=== PATIENT | male | born 1985 | race Caucasian/White ===

== ENCOUNTER 2017-11-21 14:46 | Emergency (ER) | payer BC ==
[2017-11-21] MEDS ORDERED: LIDOCAINE 1% W/EPI 1:100,000 MDV 50 ML VIAL ONE (15:33)
[2017-11-21] MEDS ORDERED: LIDOCAINE 1% 20 ML MDV ONE (15:43)
[2017-11-21] MEDS ORDERED: TETANUS & DIPHTHERIA TOX,ADULT 0.5 ML VIAL ONE (16:02)
--- NOTE | 2017-11-21 16:19 | ER ---
Nurse's Notes [facility] Name: John Tirado Age: 32 yrs Sex: Male : 1985 Arrival Date: 11/21/2017 Time: 14:50 Bed 28 Private MD: Diagnosis: Laceration without foreign body of lip;Contusion of nose Presentation: 11/21 15:19 Presenting complaint: Patient states: "i went to pee and fell forward and hit the door tw2 right on my lip and i feel like my bottom teeth are pushed back". Transition of care: patient was not received from another setting of care. Complicating Factors: There are no complicating factors for this patient. Onset of symptoms was November 21, 2017. Initial Sepsis Screen: Does the patient meet any 2 criteria? No. Patient's initial sepsis screen is negative. Does the patient have a suspected source of infection? No. Patient's initial sepsis screen is negative. Care prior to arrival: None. 15:19 Method Of Arrival: Ambulatory tw2 15:19 Acuity: RICHARDSON 4 tw2 Historical: - Allergies: 15:23 PENICILLINS; tw2 - Home Meds: 15:23 Benalista, week injections [Active]; tramadol 50 mg oral tab [Active]; tw2 - PMHx: 15:23 Lupus; Sjogrens; tw2 - PSHx: 15:23 None; tw2 - Immunization history:: Adult Immunizations up to date, Last tetanus immunization: unknown. - Social history:: Smoking status: Patient uses tobacco products, chewing tobacco. Screenin:30 Abuse screen: Denies threats or abuse. Nutritional screening: No deficits noted. tl3 Tuberculosis screening: No symptoms or risk factors identified. Fall Risk None identified. Assessment: 15:30 General: Appears in no apparent distress. uncomfortable, slender, well groomed, well tl3 developed, Behavior is calm, cooperative, appropriate for age. Pain: Complains of pain in nose and mouth Pain currently is 6 out of 10 on a pain scale. at worst was 10 out of 10 on a pain scale. Neuro: No deficits noted. Level of Consciousness is awake, alert, obeys commands, Oriented to person, place, time, situation, Appropriate for age. Cardiovascular: Heart tones S1 S2 present. Respiratory: Airway is patent Trachea midline Respiratory effort is even, unlabored, Respiratory pattern is regular, symmetrical. GI: No signs and/or symptoms were reported involving the gastrointestinal system. : No signs and/or symptoms were reported regarding the genitourinary system. EENT: No signs and/or symptoms were reported regarding the EENT system. Derm: No signs and/or symptoms reported regarding the dermatologic system. Musculoskeletal: No deficits noted. Injury Description: Laceration sustained to mouth is jagged, 0.5 to 2.5 cm long. 15:30 Reassessment: pt fell asleep on the toilet and fell forward hitting face on the corner tl3 of the bathroom cabinet. 16:37 Reassessment: Patient and/or family updated on plan of care and expected duration. Pain tl3 level reassessed. Patient is alert, oriented x 3, equal unlabored respirations, skin warm/dry/pink. Vital Signs: 15:21 BP 106 / 67; Pulse 74; Resp 18; Temp 97.5(TE); Pulse Ox 100% on R/A; Weight 49.9 kg tw2 (R); Height 5 ft. 11 in. (180.34 cm) (R); Pain 7/10; 16:37 BP 108 / 72; Pulse 72; Resp 16; Pulse Ox 100% on R/A; tl3 15:21 Body Mass Index 15.34 (49.90 kg, 180.34 cm) tw2 ED Course: 14:50 Patient arrived in ED. sb2 15:21 Triage completed. tw2 15:21 Arm band placed on. tw2 15:28 [facility]. jr8 15:28 Omi Martel MD is Attending Physician. jr8 15:29 Deloris Pollack, CLIFTON is Primary Nurse. tl3 15:30 Patient has correct armband on for positive identification. Bed in low position. Adult tl3 w/ patient. 15:30 No provider procedures requiring assistance completed. Patient did not have IV access tl3 during this emergency room visit. 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 Exp: tl3 03/01/2020. Lot #: [id number]. } Route: IM; Site: left deltoid; 16:39 Follow up: Response: No adverse reaction tl3 Outcome: 16:18 Discharge ordered by . rex 16:37 Discharged to home ambulatory. tl3 16:37 Condition: stable 16:37 Discharge instructions given to patient, Instructed on discharge instructions, follow up and referral plans. Demonstrated understanding of instructions, follow-up care. 16:40 Patient left the ED. tl3 Signatures: Jose Bahena PA PA jr8 Shantell Adan, RN RN tw2 Estefani Rose sb2 Deloris Pollack, RN RN tl3
--- NOTE | 2017-11-21 16:19 | EDPHYS ---
Physician Documentation [facility] Name: John Tirado Age: 32 yrs Sex: Male : 1985 Arrival Date: 11/21/2017 Time: 14:50 Bed 28 Private MD: ED Physician Omi Martel HPI: 11/21 16:14 This 32 yrs old Male presents to ER via Ambulatory with complaints of jr8 Laceration To Lip. 16:14 The patient has a laceration related to: falling occurred at home. The laceration(s) jr8 is(are) located on the nose and mouth. Onset: The symptoms/episode began/occurred acutely, last night. Associated signs and symptoms: The patient has no apparent associated signs or symptoms. The patient has not experienced similar symptoms in the past. The patient has not recently seen a physician. Patient stated that he fell asleep on the toilet. Stated that it caused him to fall forward hitting nose and lip . Historical: - Allergies: 15:23 PENICILLINS; tw2 - Home Meds: 15:23 Benalista, week injections [Active]; tramadol 50 mg oral tab [Active]; tw2 - PMHx: 15:23 Lupus; Sjogrens; tw2 - PSHx: 15:23 None; tw2 - Immunization history:: Adult Immunizations up to date, Last tetanus immunization: unknown. - Social history:: Smoking status: Patient uses tobacco products, chewing tobacco. ROS: 16:14 Eyes: Negative for injury, pain, redness, and discharge, Neck: Negative for injury, jr8 pain, and swelling, Cardiovascular: Negative for chest pain, palpitations, and edema, Respiratory: Negative for shortness of breath, cough, wheezing, and pleuritic chest pain, Abdomen/GI: Negative for abdominal pain, nausea, vomiting, diarrhea, and constipation, Back: Negative for injury and pain, MS/Extremity: Negative for injury and deformity, Skin: Negative for injury, rash, and discoloration, Neuro: Negative for headache, weakness, numbness, tingling, and seizure. 16:14 ENT: Positive for injury or acute deformity, laceration, nose bleed. Exam: 16:14 Head/Face: Normocephalic, atraumatic. Eyes: Pupils equal round and reactive to light, jr8 extra-ocular motions intact. Lids and lashes normal. Conjunctiva and sclera are non-icteric and not injected. Cornea within normal limits. Periorbital areas with no swelling, redness, or edema. Neck: Trachea midline, no thyromegaly or masses palpated, and no cervical lymphadenopathy. Supple, full range of motion without nuchal rigidity, or vertebral point tenderness. No Meningismus. Cardiovascular: Regular rate and rhythm with a normal S1 and S2. No gallops, murmurs, or rubs. Normal PMI, no JVD. No pulse deficits. Respiratory: Lungs have equal breath sounds bilaterally, clear to auscultation and percussion. No rales, rhonchi or wheezes noted. No increased work of breathing, no retractions or nasal flaring. Abdomen/GI: Soft, non-tender, with normal bowel sounds. No distension or tympany. No guarding or rebound. No evidence of tenderness throughout. Back: No spinal tenderness. No costovertebral tenderness. Full range of motion. Skin: Warm, dry with normal turgor. Normal color with no rashes, no lesions, and no evidence of cellulitis. MS/ Extremity: Pulses equal, no cyanosis. Neurovascular intact. Full, normal range of motion. Neuro: Awake and alert, GCS 15, oriented to person, place, time, and situation. Cranial nerves II-XII grossly intact. Motor strength 5/5 in all extremities. Sensory grossly intact. Cerebellar exam normal. Normal gait. 16:14 ENT: Exam is negative for earache, ear discharge, TM abnormalities, Nose: External nose: contusion is noted, bridge of nose and apex of the nose, Nasal septum: is midline, no septal hematoma appreciated, Nasal mucosa: Dried blood. moist, Turbinates: are normal, Mouth: Lips: moist, lacerated, approximately 2.5 cm(s), lower lip, Oral mucosa: pink and intact, moist, Gums: pink, Tongue: is moist, Posterior pharynx: is normal, airway is patent, no erythema, no exudate, no peritonsilar mass, no pooling of secretions, no swelling, normal tonsil apperance, normal sized tonsils, normal uvula appearance, normal uvula size, Dental exam: normal, no avulsion, no injury, no pain, no trismus. Vital Signs: 15:21 BP 106 / 67; Pulse 74; Resp 18; Temp 97.5(TE); Pulse Ox 100% on R/A; Weight 49.9 kg tw2 (R); Height 5 ft. 11 in. (180.34 cm) (R); Pain 7/10; 16:37 BP 108 / 72; Pulse 72; Resp 16; Pulse Ox 100% on R/A; tl3 15:21 Body Mass Index 15.34 (49.90 kg, 180.34 cm) tw2 Laceration: 16:04 Wound Repair of 2.5cm ( 1.0in ) subcutaneous laceration to mouth. Irregularly shaped.. jr8 Minimal bleeding noted.. Distal neuro/vascular/tendon intact. Anesthesia: Local anesthetic administered with 3 mls of 1% lidocaine. Wound prep: Extensive cleansing with hibiclenz by me, Wound irrigation with saline, Wound explored extensively. Skin closed with 4 5-0 fast absorbing using simple sutures and sterile technique. Patient tolerated well. MDM: 15:28 Patient medically screened. jr8 16:14 Data reviewed: vital signs, nurses notes, and as a result, I will discharge patient. jr8 Data interpreted: Pulse oximetry: on room air is 100 %. Interpretation: normal. Counseling: I had a detailed discussion with the patient and/or guardian regarding: the historical points, exam findings, and any diagnostic results supporting the discharge/admit diagnosis, the need for outpatient follow up, a family practitioner, to return to the emergency department if symptoms worsen or persist or if there are any questions or concerns that arise at home. ED course: Discussed with patient that they are fast absorbing sutures. Will not need to be taken out. Watch for s/s of infection. To come back if s/s for infection occur . 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 Exp: tl3 03/01/2020. Lot #: [id number]. } Route: IM; Site: left deltoid; 16:39 Follow up: Response: No adverse reaction tl3 Disposition: 17:18 Co-signature as Attending Physician, Omi Martel MD. rn Disposition: 11/21/17 16:18 Discharged to Home. Impression: Laceration without foreign body of lip, Contusion of nose. - Condition is Stable. - Discharge Instructions: Mouth Laceration. - Medication Reconciliation Form, Thank You Letter, Antibiotic Education, Prescription Opioid Use form. - Follow up: Private Physician; When: 1 week; Reason: Wound Recheck, Recheck today's complaints, Continuance of care, Re-evaluation by your physician. - Problem is new. - Symptoms have improved. Signatures: Omi Martel MD MD rn Roszak, Josh, PA PA jr8 Shantell Adan RN RN tw2 Deloris Pollack RN RN tl3
== END 2017-11-21 16:40 | disposition home or self-care (01) ==
LOC: ER 14:46
PROC: 0CQ0XZZ Repair Upper Lip, External Approach (ICD-10-PCS; principal; 2017-11-21)
DX: S01.511A Laceration without foreign body of lip, initial encounter (principal); W18.12XA Fall from or off toilet with subsequent striking against object, initial encounter; Y93.9 Activity, unspecified; Y92.002 Bathroom of unspecified non-institutional (private) residence as the place of occurrence of the external cause; Z23 Encounter for immunization; Z88.0 Allergy status to penicillin
CPT/HCPCS: 90714; 99283

== ENCOUNTER 2023-08-27 14:41 | Emergency (ER) | payer BC, OTHER, SELFPAY ==
[2023-08-27] MEDS ORDERED: TDAP (DIPHTH,PERTUSS(ACELL),TET VAC) 0.5 ML VIAL IMVAC ONE (14:59)
[2023-08-27 15:05] LABS: Absolute Basophils 0.1 K/uL (0-0.5); Absolute Lymphocytes (CBC) 0.5 K/uL (0.7-4.9); Absolute Monocytes 1.1 K/uL (0.1-1.3); Absolute Neutrophil 17.7 K/uL (1.8-8.0); Basophils % 0.4 % (0-1.3); Eosinophils % 0.1 % (0-4.4); Hematocrit 44.2 % (39.6-49.0); Lymphocytes % 2.7 % (15.3-44.8); MCH 29.1 pg (27.0-35.0); MCV 85.6 fL (80-100); MPV 8.2 fL (7.6-11.3); Monocytes % 5.8 % (3.3-12.3); Nucleated RBC Absolute Count 0.1 (0-0); Nucleated Red Blood Cells % 0.2 % (0-0); Platelets 269 thou/uL (152-406); RBC Red Blood Cell Count 5.17 M/uL (4.33-5.43); Red Cell Distribution Width 13.8 % (12.1-15.2)
[2023-08-27] MEDS ORDERED: ONDANSETRON 4 MG/2 ML VIAL ONE ×2 (15:11→19:51)
[2023-08-27 15:27] LABS: Albumin 4.2 g/dL (3.4-5.0); Albumin/Globulin Ratio 1.4 (1.1-1.8); Anion Gap 11.1 mEq/L (5.0-15.0); Bilirubin Total 0.3 mg/dL (0.2-1.0); Potassium 4.1 mEq/L (3.5-5.1); Protein, Total 7.2 g/dL (6.4-8.2)
[2023-08-27] MEDS ORDERED: LORazepam 2 MG/ML VIAL ONE (15:36)
[2023-08-27 15:41] LABS: Blood Morphology Comment NOT SEEN (NOT SEEN); Platelet Estimate ADEQ; White Blood Cell Scan OK (OK)
[2023-08-27] MEDS ORDERED: carBAMazepine 200 MG TAB ONE ×2 (15:43→19:51)
[2023-08-27] MEDS ORDERED: NA CHLORIDE 0.9% 1,000 ML ONE (15:43)
--- NOTE | 2023-08-27 15:52 | RAD REPORT ---
EXAM DESCRIPTION: CT - CTHCSPWOC - 08/27/2023 3:25 pm CLINICAL HISTORY: Trauma, head and neck injury. TRAUMA COMPARISON: No comparisons TECHNIQUE: Axial 5 mm thick images of the head were obtained. Axial 2 mm thick images of the cervical spine were obtained with sagittal and coronal reconstruction images generated and reviewed. All CT scans are performed using dose optimization technique as appropriate and may include automated exposure control or mA/KV adjustment according to patient size. FINDINGS: CT HEAD WITHOUT CONTRAST: No acute hemorrhage, hydrocephalus or extra-axial collection is identified.No areas of brain edema or midline shift. Bilateral carotid calcifications. The paranasal sinuses and mastoids are clear.The calvarium is intact. CT CERVICAL SPINE WITHOUT CONTRAST: No fracture or subluxation.No prevertebral soft tissues swelling is identified. Mild cervical spondyl osis including a posterior disc osteophyte complex uncovertebral joint hypertrophy at the C5-6 level. No significant neural foraminal narrowing. No central spinal stenosis appreciated. IMPRESSION: No acute intracranial or cervical spine findings.
[2023-08-27] MEDS ORDERED: LIDOCAINE 2% MPF 5 ML VIAL ONE (16:59)
[2023-08-27] MEDS ORDERED: ONDANSETRON 4 MG (ODT) TAB ONE (18:38)
--- NOTE | 2023-08-27 19:19 | RAD REPORT ---
EXAM DESCRIPTION: RAD - Elbow Right 3 View - 08/27/2023 7:10 pm CLINICAL HISTORY: PAIN COMPARISON: No comparisons FINDINGS/IMPRESSION: No acute fracture. No malalignment. No significant focal degenerative changes.
--- NOTE | 2023-08-28 00:43 | ER ---
Nurse's Notes [facility] Name: John Tirado Age: 38 yrs Sex: Male : 1985 Arrival Date: 08/27/2023 Time: 14:41 Bed 20 Private MD: Diagnosis: Other seizures;Facial laceration Presentation: 08/27 14:49 Chief complaint: Found down by neighbor after probable seizure, vomit x 3 [employer] LO[employer] PROC[employer]. hb Laceration noted to right forehead, bruising noted to bilateral elbows. Hx of seizures and lupus, takes Trileptal. Coronavirus screen: At this time, the client does not indicate any symptoms associated with coronavirus-19. Ebola Screen: No symptoms or risks identified at this time. Initial Sepsis Screen: Does the patient meet any 2 criteria? No. Patient's initial sepsis screen is negative. Does the patient have a suspected source of infection? No. Patient's initial sepsis screen is negative. Risk Assessment: Do you want to hurt yourself or someone else? Patient reports no desire to harm self or others. Onset of symptoms was August 27, 2023. 14:49 Method Of Arrival: Wheelchair hb 14:49 Acuity: RICHARDSON 2 hb Triage Assessment: 15:18 General: Appears distressed, Behavior is calm, cooperative, appropriate for age. cp4 Historical: - Allergies: 14:51 PENICILLINS; hb - PMHx: 14:51 Lupus; Sjogrens; hb Historical Immunization: - Administered Vaccines 19:58 Ondansetron IVP 4 mg nw1 19:58 carBAMazepine PO 200 mg nw1 19:05 Lidocaine Infiltration (2 %) 5 mg cp4 19:05 carBAMazepine PO 200 mg cp4 15:39 Ativan IVP 2 mg hb 15:13 Ondansetron IVP 4 mg cp4 15:03 Tetanus-Diphtheria Toxoid IM Adult 0.5 ml cp4 Bobbin Drier: [employer]; Exp: MonDec 20 2024; Lot #: [id number]; Series: 1 of 1; Patient Consent: Obtained; Date/Time: ; Source Name: John Tirado; Source Relationship: Self; Address Information: [address], [place] [address]; ; Education: Provided; VIS Presented Date: ; VIS Publication: Tetanus/Diphtheria (Td) Vaccine VIS 11/08/2016 (historic) - Immunization history:: Client reports receiving the 1st dose of the Covid vaccine, Last tetanus immunization: > 10 years ago. - Social history:: Smoking status: Reported history of juuling and/or vaping. - Family history:: not pertinent, pertinent for. Screenin:14 [facility] ED Fall Risk Assessment (Adult) History of falling in the last 3 months, cp4 including since admission Yes- single mechanical fall (1 pt) Confusion or Disorientation No (0 pts) Intoxicated or Sedated No (0 pts) Impaired Gait No (0 pts) Mobility Assist Device Used No (0 pt) Altered Elimination No (0 pt) Score/Fall Risk Level 0 - 2 = Low Risk Oriented to surroundings, Maintained a safe environment, Educated pt \\T\\ family on fall prevention, incl call for assistance when getting out of bed, Assessed \\T\\ reinforced patient's understanding of fall precautions, Provided non-skid footwear, Hourly rounding (assess needs \\T\\ fall precautionary measures) done. Abuse screen: Denies threats or abuse. Nutritional screening: No deficits noted. Tuberculosis screening: No symptoms or risk factors identified. Assessment: 15:14 General: Appears distressed, Behavior is calm, cooperative, appropriate for age. Pain: cp4 Complains of pain in headache, bilateral elbows. Neuro: No deficits noted. 19:05 Reassessment: Report received from CLIFTON Morrell. Introductions made and patient noted nw1 without IV, blood on face and right hand. Pt noted postictal but redirectable. Father at bedside. Notified Dr. Martel that patient is without IV and vomiting. New orders made. Will return to place IV and administer medication. 19:32 Reassessment: Patient cleaned up and placed into gown. Most blood able to be removed. nw1 Linen changed and patient given warm blanket to patient. Dr. Martel at bedside to discuss POC. Patient in bed. IV placed and will return to administer medication. 19:32 General: Appears uncomfortable, Behavior is cooperative, quiet, restless. nw1 Cardiovascular:. 19:32 Pain: Complains of pain in "everywhere". Neuro: Seizure activity prior to start of nw1 shift. Cardiovascular: Heart tones present Capillary refill < 3 seconds Pulses are all present. Rhythm is sinus rhythm. Respiratory: Airway is patent Trachea midline. GI: Reports intolerance of fluids, intolerance of food, nausea, vomiting. : No deficits noted. Derm: Skin has skin tears on laceration to right frontal forehead. Skin is dry, Skin is pale, Skin temperature is warm. Musculoskeletal: Reports. 19:58 Reassessment: Medication administered and VS obtained. Father remains at bedside, Call nw1 light at bedside, Will continue to monitor. 21:30 Reassessment: Pt noted vomiting water. nw1 22:50 Reassessment: Pt given water per Dr. Martel to see if tolerating. Pt noted lethargic at nw1 this time. Will return to assess if tolerated. 23:59 Reassessment: Pt noted sleeping in bed with both eyes closed. No vomiting noted. Dr. bibiana Martel notified. Vital Signs: 14:49 BP 109 / 87; Pulse 96; Resp 18; Temp 98.3; Pulse Ox 99% on R/A; Weight 54.43 kg; Height hb 5 ft. 10 in. ; Pain 8/10; 16:00 BP 116 / 80; Pulse 99; Resp 18; Pulse Ox 97% ; cp4 17:00 BP 127 / 85; Pulse 110; Resp 18; Pulse Ox 97% ; cp4 18:00 BP 124 / 78; Pulse 93; Resp 18; Pulse Ox 97% ; cp4 19:57 BP 121 / 78; Pulse 85; Resp 17; Pulse Ox 98% ; nw1 21:00 BP 113 / 80; Pulse 98; Pulse Ox 98% ; nw1 14:49 Body Mass Index 17.22 (54.43 kg, 177.8 cm) hb 14:49 Pain Scale: Adult hb Tigist Coma Score: 15:18 Eye Response: spontaneous(4). Motor Response: obeys commands(6). Verbal Response: cp4 oriented(5). Total: 15. 19:32 Eye Response: spontaneous(4). Motor Response: obeys commands(6). Verbal Response: nw1 confused(4). Total: 14. 21:00 Eye Response: spontaneous(4). Motor Response: obeys commands(6). Verbal Response: nw1 confused(4). Total: 14. ED Course: 14:42 Patient arrived in ED. mr 14:44 Hawk Cole MD is Attending Physician. rt 14:51 Porsche Esparza is Primary Nurse. cp4 14:51 Triage completed. hb 14:52 Arm band placed on. hb 15:00 CMP Sent. cp4 15:00 CBC with Diff Sent. cp4 15:14 Bed in low position. Call light in reach. Side rails up X2. cp4 15:14 Inserted saline lock: 20 gauge in right antecubital area, using aseptic technique. cp4 Blood collected. 15:27 CT Head C Spine In Process Unspecified. EDMS 16:32 intact, bleeding controlled, No redness/swelling at site. Pressure dressing applied. cp4 19:12 Elbow Left 3 View XRAY In Process Unspecified. EDMS 19:12 Elbow Right 3 View XRAY In Process Unspecified. EDMS 19:32 Patient has correct armband on for positive identification. Placed in gown. Bed in low nw1 position. Call light in reach. Side rails up X2. Adult w/ patient. Seizure precautions initiated. Provided Education on: POC. Client placed on continuous cardiac and pulse oximetry monitoring. NIBP monitoring applied. color television console monitor on. Pulse ox on. NIBP on. Door closed. Noise minimized. Lights dimmed. Warm blanket given. self. 19:32 Inserted saline lock: 20 gauge in right forearm, using aseptic technique. nw1 19:32 No provider procedures requiring assistance completed. nw1 21:17 Vangie Baker, RN is Primary Nurse. nw1 08/28 01:22 IV discontinued, intact, bleeding controlled, No redness/swelling at site. Pressure nw1 dressing applied. Administered Medications: 08/27 15:03 Drug: Tetanus-Diphtheria Toxoid IM Adult 0.5 ml IM once; Provide Vaccine Information cp4 Statement (VIS). {Bobbin Drier: [employer]; Exp: MonDec 20 2024; Lot #: [id number]; Series: 1 of 1; Patient Consent: Obtained; Date/Time: ; Source Name: John Conklin Candida; Source Relationship: Self; Address Information: [address] [place] [address]; ; Education: Provided; VIS Presented Date: ; VIS Publication: Tetanus/Diphtheria (Td) Vaccine VIS 11/08/2016 (historic)} Route: IM; Site: right deltoid; 15:13 Drug: Ondansetron IVP 4 mg IVP once; over 2 minutes Route: IVP; Site: right antecubital;cp4 15:39 Drug: Ativan IVP 2 mg IVP once Route: IVP; Site: right antecubital; hb 19:05 Drug: Lidocaine Infiltration (2 %) 5 mg Infiltration once Route: Infiltration; cp4 19:05 Drug: carBAMazepine PO 200 mg PO once Route: PO; cp4 19:58 Drug: Ondansetron IVP 4 mg IVP once; over 2 minutes Route: IVP; Site: right forearm; nw1 19:58 Drug: carBAMazepine PO 200 mg PO once Route: PO; nw1 Medication: 15:14 VIS not applicable for this client. cp4 Outcome: 08/28 00:43 Discharge ordered by . rn 01:22 Discharged to home with family, nw1 01:22 Condition: stable 01:22 Discharge instructions given to family, Instructed on discharge instructions, follow up and referral plans. medication usage, Demonstrated understanding of instructions, follow-up care, medications, Prescriptions given X 2, 01:23 Patient left the ED. nw1 Signatures: Dispatcher [employer] EDNC Stu Mansi, Reg Reg mr Omi Martle MD MD rn Baxter, Heather, RN RN Hawk Cole MD MD rt Potter, Christina cp4 Vangie Baker RN RN nw1 Corrections: (The following items were deleted from the chart) 08/27 23:14 19:32 Reassessment: Patient cleaned up and placed into gown. Most blood able to be nw1 removed. Linen changed and patient given warm blanket to patient. Dr. Martel at bedside to discuss POC. Patient in bed. IV placed and will return to administer medication. nw1
--- NOTE | 2023-08-28 00:43 | EDPHYS ---
Physician Documentation [facility] Name: John Tirado Age: 38 yrs Sex: Male : 1985 Arrival Date: 08/27/2023 Time: 14:41 Bed 20 Private MD: ED Physician Hawk Cole HPI: 08/27 17:17 This 38 yrs old Male presents to ER via Wheelchair with complaints of Seizure, Head rt Injury-Adult. 17:17 Patient presents to the ED with seizure, head injury. The patient reportedly did not rt take his Tegretol this morning. Recurrence of seizure. Unclear how long it lasted for. Patient did hit his head, sustaining a laceration to his forehead. Also reports pain, bruising to the elbows. Denies other acute complaints at this time, symptoms are moderate in severity, no other aggravating alleviating factors.. Historical: - Allergies: 14:51 PENICILLINS; hb - PMHx: 14:51 Lupus; Sjogrens; hb - Immunization history:: Client reports receiving the 1st dose of the Covid vaccine, Last tetanus immunization: > 10 years ago. - Social history:: Smoking status: Reported history of juuling and/or vaping. - Family history:: not pertinent, pertinent for. ROS: 17:17 Constitutional: Negative for fever, chills, and weight loss, Cardiovascular: Negative rt for chest pain, palpitations, and edema, Respiratory: Negative for shortness of breath, cough, wheezing, and pleuritic chest pain, Abdomen/GI: Negative for abdominal pain, nausea, vomiting, diarrhea, and constipation, 17:17 MS/extremity: Positive for contusion, pain, 17:17 Skin: Positive for laceration(s), Negative for abrasions, 17:17 Neuro: Positive for headache, seizure activity, Exam: 17:17 Constitutional: This is a well developed, well nourished patient who is awake, alert, rt and in no acute distress. Chest/axilla: Normal chest wall appearance and motion. Nontender with no deformity. No lesions are appreciated. Cardiovascular: Regular rate and rhythm with a normal S1 and S2. No gallops, murmurs, or rubs. Normal PMI, no JVD. No pulse deficits. Respiratory: Lungs have equal breath sounds bilaterally, clear to auscultation and percussion. No rales, rhonchi or wheezes noted. No increased work of breathing, no retractions or nasal flaring. Abdomen/GI: Soft, non-tender, with normal bowel sounds. No distension or tympany. No guarding or rebound. No evidence of tenderness throughout. Neuro: Awake and alert, GCS 15, oriented to person, place, time, and situation. Cranial nerves II-XII grossly intact. Motor strength 5/5 in all extremities. Sensory grossly intact. Cerebellar exam normal. Normal gait. Psych: Awake, alert, with orientation to person, place and time. Behavior, mood, and affect are within normal limits. 17:17 Head/face: 3 cm laceration to the right forehead, no other external evidence of trauma. 17:17 Musculoskeletal/extremity: Bruises without deformity noted to the bilateral elbows, no other evidence of trauma on the extremities. Vital Signs: 14:49 BP 109 / 87; Pulse 96; Resp 18; Temp 98.3; Pulse Ox 99% on R/A; Weight 54.43 kg; Height hb 5 ft. 10 in. ; Pain 8/10; 16:00 BP 116 / 80; Pulse 99; Resp 18; Pulse Ox 97% ; cp4 17:00 BP 127 / 85; Pulse 110; Resp 18; Pulse Ox 97% ; cp4 18:00 BP 124 / 78; Pulse 93; Resp 18; Pulse Ox 97% ; cp4 19:57 BP 121 / 78; Pulse 85; Resp 17; Pulse Ox 98% ; nw1 21:00 BP 113 / 80; Pulse 98; Pulse Ox 98% ; nw1 14:49 Body Mass Index 17.22 (54.43 kg, 177.8 cm) hb 14:49 Pain Scale: Adult hb [place] Coma Score: 15:18 Eye Response: spontaneous(4). Motor Response: obeys commands(6). Verbal Response: cp4 oriented(5). Total: 15. 19:32 Eye Response: spontaneous(4). Motor Response: obeys commands(6). Verbal Response: nw1 confused(4). Total: 14. 21:00 Eye Response: spontaneous(4). Motor Response: obeys commands(6). Verbal Response: nw1 confused(4). Total: 14. Laceration: 19:00 Wound Repair of 4cm ( 1.6in ) subcutaneous laceration to face. Linear shaped.. Distal rt neuro/vascular/tendon intact. Anesthesia: Local anesthetic administered with 2 mls of 1% lidocaine. Wound prep: Moderate cleansing by nurse. Skin closed with 9 4-0 Prolene using simple sutures and sterile technique. Dressed with 4x4's. Patient tolerated well. MDM: 14:44 Patient medically screened. rt 19:00 Differential diagnosis: Seizure, nonadherence, laceration, intracranial hemorrhage, rt elbow fracture. Data reviewed: vital signs, nurses notes, radiologic studies. Consideration of Admission/Observation Escalation of care including admission/observation considered. I considered the following discharge prescriptions or medication management in the emergency department Medications were administered in the Emergency Department. See MAR. Independent interpretation of the following test(s) in the Emergency Department CT Scan: My interpretation is No intracranial hemorrhage seen on interpretation of CT scan images. Care significantly affected by the following chronic conditions: Seizure disorder. Counseling: I had a detailed discussion with the patient and/or guardian regarding the historical points, exam findings, and any diagnostic results supporting the discharge/admit diagnosis, lab results, radiology results, the need for outpatient follow up, to return to the emergency department if symptoms worsen or persist or if there are any questions or concerns that arise at home. 08/28 00:40 ED course: Dr. Cole asked me to reevaluate patient and make sure he was past his rn postictal period and able to tolerate p.o. which now he is. Spoke with family member who is going to take him home. Refilled his Tegretol and give him Zofran as needed. Patient is awake and at baseline and denies any fever or infectious symptoms. Patient with lupus and Sjogren's. CT of head and x-ray of elbows without acute findings. Will discharge home per Dr. Cole's original plan.. 00:42 ED course: Patient states he missed ran out of Tegretol. This is likely the reason he rn had breakthrough seizure. Asked patient multiple questions regarding possible infection given elevated white blood cell count and patient denies infectious symptoms. Afebrile here. Asked patient and family member to watch out for signs of infection and given return precautions.. 08/27 14:50 Order name: CBC with Diff; Complete Time: 15:48 rt 08/27 14:50 Order name: CMP; Complete Time: 15:34 rt 08/27 15:41 Order name: CBC Smear Scan; Complete Time: 15:48 EDMS 08/27 14:50 Order name: CT Head C Spine; Complete Time: 19:04 rt 08/27 14:50 Order name: Elbow Left 3 View XRAY; Complete Time: 19:24 rt 08/27 14:50 Order name: Elbow Right 3 View XRAY; Complete Time: 19:24 rt 08/27 19:43 Order name: IV Start; Complete Time: 19:55 rn Administered Medications: 08/27 15:03 Drug: Tetanus-Diphtheria Toxoid IM Adult 0.5 ml IM once; Provide Vaccine Information cp4 Statement (VIS). 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: [employer]; Exp: MonDec 20 2024; Lot #: [id number]; Series: 1 of 1; Patient Consent: Obtained; Date/Time: ; Source Name: John Tirado; Source Relationship: Self; Address Information: [address] [place] [address]; ; Education: Provided; VIS Presented Date: ; VIS Publication: Tetanus/Diphtheria (Td) Vaccine VIS 11/08/2016 (historic)} Route: IM; Site: right deltoid; 15:13 Drug: Ondansetron IVP 4 mg IVP once; over 2 minutes Route: IVP; Site: right antecubital;cp4 15:39 Drug: Ativan IVP 2 mg IVP once Route: IVP; Site: right antecubital; hb 19:05 Drug: Lidocaine Infiltration (2 %) 5 mg Infiltration once Route: Infiltration; cp4 19:05 Drug: carBAMazepine PO 200 mg PO once Route: PO; cp4 19:58 Drug: Ondansetron IVP 4 mg IVP once; over 2 minutes Route: IVP; Site: right forearm; nw1 19:58 Drug: carBAMazepine PO 200 mg PO once Route: PO; nw1 Disposition Summary: 08/28/23 00:43 Discharge Ordered Notes: Location: Home rn Problem: an acute exacerbation rn Symptoms: have improved rn Condition: Stable rn Diagnosis - Other seizures rn - Facial laceration rn Followup: rt - With: Private Physician - When: 2 - 3 days - Reason: Discharge Instructions: - Discharge Summary Sheet rt - Facial Laceration rt - Seizure, Adult rt Forms: - Medication Reconciliation Form rn - Thank You Letter rn - 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 - Prescription Opioid Use rn - Patient Portal Instructions rn - Leadership Thank You Letter rn Prescriptions: - ondansetron 8 mg Oral Tablet,disintegrating - take 1 tablet ORAL route every 8 hours As needed; 12 tablet; Refills: 0, rn Product Selection Permitted - Tegretol XR 200 mg Oral Tablet Sustained Release 12 hr - take 1 tablet ORAL route every 12 hours; 60 tablet; Refills: 0, Product rt Selection Permitted Signatures: Dispatcher [employer] EDMS Omi Martel MD MD rn Baxter, Heather, RN RN Hawk Cole MD MD rt Porsche Esparza cp4 Vangie Baker RN RN nw1 Corrections: (The following items were deleted from the chart) 08/28 00:43 00:42 ED course: Patient states he missed ran out of Tegretol.. allison rn
[2023-08-28 02:28] VITALS: TEMP 98.3
[2023-08-28 03:04] VITALS: BP 113/80; O2SAT 98
== END 2023-08-28 01:23 | disposition home or self-care (01) ==
LOC: ER 14:41
PROC: 0HQ1XZZ Repair Face Skin, External Approach (ICD-10-PCS; principal; 2023-08-27)
DX: S01.81XA Laceration without foreign body of other part of head, initial encounter (principal); G40.89 Other seizures; Z23 Encounter for immunization; Z88.0 Allergy status to penicillin
CPT/HCPCS: 12013; 85025; 36415; 80053; 70450; 72125; 73080 ×2; 90471 ×2; 99285; Q0162; J2001; J2405 ×2; J7030